=== PATIENT | female | born 1935 | race Caucasian/White ===

== ENCOUNTER 2024-01-14 17:22 | Emergency (ER) | payer MEDICARE ==
[~2024-01-14] VITALS: Ht 152.4 cm; Wt 59.0 kg
[~2024-01-14 17:22] MED LIST: ATOR10TA69 PO; BUPR-49 PO; DULO30CA52 PO; LEVE500T19 PO; LIDO73LI TP; METF-444 PO; METO25TA6 PO; MIRT-22 PO; ONDA4TAB10 PO; OXYB-66 PO; SACU1TAB7 PO
[2024-01-14 18:54] LABS: BASOPHILS # (AUTO) 0.02 K/uL (0.00-0.20); BASOPHILS % (AUTO) 0.3 % (0.0-5.0); EOSINOPHILS # (AUTO) 0.04 K/uL (0.00-0.70); EOSINOPHILS % (AUTO) 0.6 % (0.0-8.0); IMMATURE GRANULOCYTE ABSOLUTE 0.04 K/uL (0-1); LYMPHOCYTES # (AUTO) 0.4 K/uL (1.0-4.8); LYMPHOCYTES % (AUTO) 5.1 % (21.0-51.0); MEAN CORPUSCULAR HGB CONC 34.3 g/dL (32.0-36.0); MEAN CORPUSCULAR VOLUME 93.2 fL (79-99); MONOCYTES # (AUTO) 0.6 K/uL (0.1-1.0); MONOCYTES % (AUTO) 8.4 % (3.0-13.0); PLATELET COUNT (AUTO) 162 K/uL (130-400); RED BLOOD CELL COUNT(AUTO) 3.22 MIL/uL (4.00-5.50); RED CELL DISTRIBUTION WIDTH 13.8 % (11.0-15.5)
[2024-01-14 19:08] LABS: CREATININE 0.8 mg/dL (0.5-1.0); POTASSIUM 3.2 mmol/L (3.5-5.1)
[2024-01-14 19:13] LABS: ALBUMIN 2.5 g/dL (3.5-5.0); BILIRUBIN,TOTAL 0.5 mg/dL (0.2-1.0); TOTAL PROTEIN, SERUM 6.1 g/dL (6.0-8.3)
[2024-01-14 20:50] VITALS: BP 127/59; PULSE 96; RESP 16; O2SAT 99
== END 2024-01-14 21:59 | disposition home or self-care (01) ==
LOC: EDH 17:22
DX: M25.512 Pain in left shoulder (principal); F03.90 Unspecified dementia, unspecified severity, without behavioral disturbance, psychotic disturbance, mood disturbance, and anxiety; E11.9 Type 2 diabetes mellitus without complications; I10 Essential (primary) hypertension; Z79.84 Long term (current) use of oral hypoglycemic drugs; Z79.899 Other long term (current) drug therapy; Z88.0 Allergy status to penicillin
CPT/HCPCS: 36415; 71045; 73000; 80053; 82948; 84484; 85025; 93005